=== PATIENT | male | born 1965 | race Caucasian/White ===

== ENCOUNTER → 2016-08-05 | Outpatient (CLI) | payer BC ==
[~2016-08-05] MED LIST: FLUO0.05 TD; GADAVIST IV PRN; GLGKIT; HYDR-4079 PO; INSDGIPEN SC; KETO2CRE14 TD; OMEP20CA9 PO; [UNRECOGNIZED DRUG - OTHER] SC
--- NOTE | 2016-08-05 15:45 | DIAGNOSTIC IMAGING REPORT ---
CERVICAL SPINE MRI WITH AND WITHOUT CONTRAST HISTORY: Neck pain. Arm numbness. TECHNIQUE: Multiplanar multisequence MRI of the cervical spine was performed both before and after the use of intravenous contrast. COMPARISON STUDY: None. FINDINGS: Straightening of the cervical spine. Alignment is intact. The visualized posterior fossa is unremarkable. Cervical spinal cord demonstrates a normal signal intensity. Mild disc space narrowing seen from C3 through C7 with associated disc desiccation. Prevertebral soft tissues and the C1-C2 interval are intact. No abnormal enhancement. C2-C3: No significant central canal or neural foraminal narrowing. C3-C4: No central canal narrowing. Moderate left neural foraminal narrowing. C4-C5: There is a 6 x 3 mm focal central disc protrusion which abuts and slightly deforms the anterior cord. There is moderate right-sided neural foraminal narrowing. C5-C6: Broad-based posterior disc bulge which abuts but does not deform the anterior cord. There is severe bilateral neural foraminal narrowing due to the disc bulge and uncovertebral hypertrophy. C6-C7: Small broad-based posterior disc bulge which abuts but does not significantly deform the anterior cord. Mild bilateral neural foraminal narrowing. C7-T1: No significant central canal or neural foraminal narrowing. IMPRESSION: 1. A 6 x 3 mm focal central disc protrusion at C4-C5 which abuts and slightly deforms the anterior cord. There is also moderate right-sided neural foraminal narrowing. 2. Broad-based posterior disc bulges at C5-C6 and C6-C7 which abut but do not deform the anterior cord. There is also severe bilateral neural foraminal narrowing at C5-C6. 3. Straightening of the cervical spine. Electronically signed by: Иван Elizabeth M.D. 08/05/2016 3:44 PM Dictated Date/Time: 08/05/2016 3:34 PM
== END | disposition home or self-care (01) ==
LOC: C.MRI 13:58
PROVIDERS: ATTEND Family Medicine
DX: M50.121 Cervical disc disorder at C4-C5 level with radiculopathy (principal); M50.122 Cervical disc disorder at C5-C6 level with radiculopathy; M50.123 Cervical disc disorder at C6-C7 level with radiculopathy

== ENCOUNTER → 2016-12-21 | Outpatient (CLI) | payer BC ==
[~2016-12-21] MED LIST changes: -GADAVIST IV PRN
[2016-12-21 09:35] LABS: BASO % 0.6 %; BASO ABS # 0.04 K/uL (0-0.2); COMPLETE YES; EOS % 3.9 %; HEMATOCRIT 41.5 % (42-52); IG% 0.2 %; LYMPH % 46.1 %; LYMPH ABS # 2.94 K/uL (1.2-3.4); MEAN CORPUSCULAR HEMOGLOBIN 28.2 pg (25-34); MEAN PLATELET VOLUME 9.4 fL (7.4-10.4); MONO % 7.4 %; NEUT % 41.8 %; PLATELET COUNT 303 K/uL (130-400); WHITE BLOOD COUNT 6.38 K/uL (4.8-10.8)
[2016-12-21 09:55] LABS: ESTIMATED AVERAGE GLUCOSE 137 mg/dl; HA1C FLAG Normal (Normal)
[2016-12-21 10:01] LABS: ALB/GLOB RATIO 1.2 (0.9-2); ALKALINE PHOSPHATASE 56 U/L (45-117); ALT/SGPT 14 U/L (12-78); AST/SGOT 11 U/L (15-37); BLOOD UREA NITROGEN 11 mg/dl (7-18); BUN/CREATININE RATIO 12.6 (10-20); CALCIUM 8.8 mg/dl (8.5-10.1); CARBON DIOXIDE 28 mmol/L (21-32); CHLORIDE 110 mmol/L (98-107); CREATININE 0.86 mg/dl (0.60-1.40); GLUCOSE 78 mg/dl (70-99); HDL CHOLESTEROL 42 mg/dl; SODIUM 142 mmol/L (136-145)
[2016-12-21 10:12] LABS: CHOLESTEROL 175 mg/dl (0-200); CHOLESTEROL/HDL RATIO 4.2; LDL CHOLESTEROL CALCULATED 111 mg/dl; TRIGLYCERIDES 111 mg/dl (0-150); VERY LOW DENSITY LIPOPROT CALC 22 mg/dl
== END | disposition home or self-care (01) ==
LOC: C.LAB1850 08:28
PROVIDERS: ATTEND Nurse Practitioner Adult Health
DX: Z00.00 Encounter for general adult medical examination without abnormal findings (principal); E78.00 Pure hypercholesterolemia, unspecified; E10.43 Type 1 diabetes mellitus with diabetic autonomic (poly)neuropathy; E10.65 Type 1 diabetes mellitus with hyperglycemia; R20.0 Anesthesia of skin; E10.42 Type 1 diabetes mellitus with diabetic polyneuropathy

== ENCOUNTER → 2017-05-02 | Outpatient (CLI) | payer BC ==
[2017-05-02 09:40] LABS: BASO % 0.3 %; BASO ABS # 0.03 K/uL (0-0.2); COMPLETE YES; HEMATOCRIT 42.5 % (42-52); IG% 0.1 %; LYMPH % 35.1 %; LYMPH ABS # 3.02 K/uL (1.2-3.4); MEAN CELL VOLUME 84.7 fL (80-100); MEAN CORPUSCULAR HEMOGLOBIN 29.1 pg (25-34); MEAN CORPUSCULAR HGB CONC 34.4 g/dl (32-36); MEAN PLATELET VOLUME 10.1 fL (7.4-10.4); MONO % 6.4 %; NEUT % 55.1 %; PLATELET COUNT 279 K/uL (130-400); RED BLOOD COUNT 5.02 M/uL (4.7-6.1)
[2017-05-02 10:01] LABS: CREATININE RANDOM URINE 63.1 mg/dl
[2017-05-02 10:06] LABS: AST/SGOT 4 U/L (15-37); BLOOD UREA NITROGEN 10 mg/dl (7-18); BUN/CREATININE RATIO 12.6 (10-20); CALCIUM 8.9 mg/dl (8.5-10.1); CARBON DIOXIDE 31 mmol/L (21-32); CHLORIDE 105 mmol/L (98-107); CREATININE 0.79 mg/dl (0.60-1.40); GLUCOSE 113 mg/dl (70-99); SODIUM 141 mmol/L (136-145)
[2017-05-02 10:09] LABS: ALB/GLOB RATIO 1.2 (0.9-2); ALKALINE PHOSPHATASE 64 U/L (45-117); ALT/SGPT 11 U/L (12-78); CHOLESTEROL 201 mg/dl (0-200); CHOLESTEROL/HDL RATIO 4.3; HDL CHOLESTEROL 47 mg/dl; LDL CHOLESTEROL CALCULATED 133 mg/dl; TRIGLYCERIDES 103 mg/dl (0-150); VERY LOW DENSITY LIPOPROT CALC 21 mg/dl
[2017-05-02 10:26] LABS: ESTIMATED AVERAGE GLUCOSE 169 mg/dl; HA1C FLAG Normal (Normal)
== END | disposition home or self-care (01) ==
LOC: C.LAB1850 08:08
PROVIDERS: ATTEND Nurse Practitioner Family
DX: E11.42 Type 2 diabetes mellitus with diabetic polyneuropathy (principal); E11.49 Type 2 diabetes mellitus with other diabetic neurological complication; E11.3299 Type 2 diabetes mellitus with mild nonproliferative diabetic retinopathy without macular edema, unspecified eye; E11.43 Type 2 diabetes mellitus with diabetic autonomic (poly)neuropathy; E78.00 Pure hypercholesterolemia, unspecified

== ENCOUNTER 2019-07-13 19:50 | Inpatient (IN) ==
[2019-07-13] MEDS ORDERED: FAMOTIDINE 20MG IV PUSH 20 MG/5 ML SYR IV STA (20:18)
[2019-07-13] MEDS ORDERED: MoRPHine SULFATE 4 MG/ML 1 ML CARP\\VIAL IV STA ×2 (20:18→22:07)
[2019-07-13] MEDS ORDERED: METOCLOPRAMIDE HCL INJ 5 MG/ML 2 ML VIAL IV STA (20:18)
[2019-07-13] MEDS ORDERED: SODIUM CHLORIDE 0.9% 1000ML 1,000 ML IV SCH (20:30)
[2019-07-13 20:49] LABS: Basophils # (auto) 0.01 K/uL (0-0.2); Basophils % (auto) 0.1 %; Hematocrit (blood only) 39.4 % (42-52); Hemoglobin 13.8 g/dL (14.0-18.0); Immature Granulocytes # (auto) 0.02 K/uL (0.00-0.02); Immature Granulocytes % (auto) 0.2 %; Lymphocytes # (auto) 1.18 K/uL (1.2-3.4); Lymphocytes % (auto) 10.5 %; Mean Corpuscular Hemoglobin 29.6 pg (25-34); Mean Corpuscular Volume 84.4 fL (80-100); Monocytes # (auto) 0.41 K/uL (0.11-0.59); Monocytes % (auto) 3.6 %; Neutrophils # (auto) 9.64 K/uL (1.4-6.5); Neutrophils % (auto) 85.6 %; Platelet Count 256 K/uL (130-400); RDW Coefficient of Variation 13.2 % (11.5-14.5); RDW Standard Deviation 39.5 fL (36.4-46.3); Red Blood Count 4.67 M/uL (4.7-6.1); White Blood Count 11.26 K/uL (4.8-10.8)
[2019-07-13 20:58] LABS: Prothrombin Time 10.4 Seconds (9.0-12.0)
[2019-07-13 21:05] LABS: BUN Creatinine Ratio 15.6 (10-20); Calcium 9.9 mg/dl (8.5-10.1); Creatinine Clr Calc Pharmacy 102.9 ml/min; Est GFR (African American) 98.7; Est GFR (Non-African American) 85.1; Potassium 4.2 mmol/L (3.5-5.1)
[2019-07-13 21:10] LABS: Albumin Globulin Ratio 1.1 (0.9-2); Bilirubin,Total 1.6 mg/dl (0.2-1); Globulin 3.5 gm/dl (2.5-4.0); Total Protein 7.5 gm/dl (6.4-8.2); Troponin I 0.016 ng/ml (0-0.045)
[2019-07-13] MEDS ORDERED: IOVERSOL 100ml IV PRN (21:31)
--- NOTE | 2019-07-13 21:53 | CT Scan Report ---
CT SCAN OF THE ABDOMEN AND PELVIS WITH IV CONTRAST CLINICAL HISTORY: Epigastric abdominal pain. Nausea and vomiting. COMPARISON STUDY: Abdominal CT dated 10/20/2010. TECHNIQUE: Following the IV administration of 93 cc of Optiray 320, CT scan of the abdomen and pelvi s is performed from the lung bases to the proximal femora. Images are reviewed in the axial, sagittal , and coronal planes. IV contrast was administered without complication. A dose lowering technique wa s utilized adhering to the principles of ALARA. CT DOSE: 925.72 mGy.cm FINDINGS: Lung bases: The heart is normal in size and without pericardial effusion. The lung bases are clear no ting bibasilar atelectasis. There is a small hiatal hernia. Liver: The contrast-enhanced liver is normal in size, contour, and attenuation. There is no intrahepa tic biliary ductal dilatation. The hepatic veins and portal veins are patent. Gallbladder: Unremarkable. Spleen: Normal in size and attenuation. Pancreas: Atrophic and grossly unremarkable. Adrenal glands: Unremarkable. Kidneys: The contrast enhanced kidneys are normal in size and without hydronephrosis. The kidneys enh ance symmetrically. Abdominal vasculature: The abdominal aorta is normal in course and caliber. Bowel: There is no bowel obstruction. Submucosal fat deposition is noted throughout the colon. This i s a nonspecific finding but suggests chronic inflammation. The appendix is well-visualized and kirk l. Peritoneum: There is no intraperitoneal free air or abdominal ascites. There is a large fat-containin g umbilical hernia. Lymphadenopathy: None. Pelvic viscera: There is mild median lobe hypertrophy of the prostate gland. The bladder and seminal vesicles are normal as visualized. Skeletal structures: No lytic or blastic lesions are seen. IMPRESSION: No acute infectious or inflammatory findings are identified in the abdomen or pelvis. ACT 112: Negative or not required by law. Electronically signed by: Hao Zacarias M.D. 07/13/2019 9:52 PM
[2019-07-13] MEDS ORDERED: ONDANSETRON INJ 2 MG/ML 2 ML VIAL IV STA (22:07)
[2019-07-13] MEDS ORDERED: CAPSAICIN CR 0.075% 60 GM TUBE EXT ONE (22:30)
--- NOTE | 2019-07-13 22:53 | Emergency Department Note ---
Entered by Clary Prieto acting as a scribe for History of Present Illness General Chief complaint: Abdominal Pain Stated complaint: ABD PAIN Time Seen by Provider: 07/13/19 20:09 Source: patient Mode of arrival: ambulatory Limitations: no limitations History of Present Illness Provider complaint: Abdominal pain Onset (ago): day(s) 2 Location: abdomen Radiation: back Severity: similar to prior episodes Pain Consistency: + other (worsening) Maximum Pain Intensity: 8 Quality: + other (pain) Associated symptoms: + nausea/vomiting and + other (Additional symptoms: diarrhea, constipation (now resolved). Denies: leg pain, trouble breathing); no chest pain and no fever/chills Treatments prior to arrival: none The patient is a 53 year old male with a history of gastroparesis, type 2 diabetes, [place] syndrome, and hypercholesterolemia who presents to the Emergency Room with complaints of worsening abdominal pain starting 2 days ago. The patient reports that his pain started after eating dinner 2 days ago. He recalls that he felt nauseous but did not vomit before his pain gradually subsided. However, he notes that when he ate dinner last night, his pain came on immediately and has not resolved. He explains that he had difficulty sleeping secondary to his pain and that his pain has started to migrate into the small of his back. The patient indicates that his pain has been accompanied by nausea, vomiting, and some diarrhea. He also states that he has been unable to eat and drink today. He adds that he was constipated for a few days this week and expresses concern that it may be related to his current symptoms. He otherwise denies any leg pain, fevers, trouble breathing, and chest pain. He reports no recent trauma. The patient mentions that he experienced similar abdominal pain before he was diagnosed with diabetes 9 years ago. He notes that he normally takes terminal worker and short-acting insulin and that he does not monitor his blood sugar at home. Home Medications Home Medications Medication Instructions Recorded Confirmed Type blood sugar diagnostic #10 ea 01/23/19 02/14/19 History pen needle, diabetic 31 gauge x #30 ea 01/23/19 02/14/19 History 3/16" insulin lispro 100 unit/mL 30 units SQ TID #30 ml 02/15/19 07/13/19 Rx subcutaneous pen insulin degludec 100 unit/mL (3 30 units SQ BID #30 ml 07/05/19 07/13/19 Rx mL) subcutaneous pen acetaminophen [Tylenol Extra 100 mg PO Q6H PRN 07/13/19 07/13/19 History Strength] fluocinonide 1 appln TOP BID PRN 07/13/19 07/13/19 History Allergies Allergy/AdvReac Type Severity Reaction Status Date / Time Penicillins Allergy Severe N/V Verified 07/13/19 20:44 aspirin Allergy Intermediate HIVES AND Verified 07/13/19 20:44 SWELLING OF THE FACE ibuprofen Allergy Intermediate HIVES AND Verified 07/13/19 20:44 SWELLING OF THE FACE Past Med/Surg History Medical History Gastroparesis Gilbert's syndrome (Acute) Pure hypercholesterolemia (Acute) Type 2 diabetes mellitus Family History Mother Hypertension Diabetes Myocardial infarction Father Hypertension Diabetes Myocardial infarction Grandfather Myocardial infarction Uncle Myocardial infarction Denies family history of Ovarian cancer Prostate cancer Breast cancer Colorectal cancer Social History Preferred Language: [place] Visual Impairment: No Limitations Hearing Ability: Normal marital status: Current Living Situation: Spouse current occupational status: employed current occupation: meterologist Feels Safe at Home: Yes Smoking Status: Never smoker Hx Alcohol Use: Yes Alcohol Intake Frequency: Weekly Hx Substance Use: Yes substance use type: marijuana Childhood Exposure to Second-Hand Smoke: Yes Dental Care, Regularly: Yes Physical Activity Frequency: Does not Exercise Seatbelt Use: always Sunscreen Use: Yes Review of Systems See HPI for pertinent positives & negatives. and A total of 10 systems reviewed and were otherwise negative Physical Exam Vital Signs Vital Signs - 24 hr 07/13/19 19:54 07/13/19 21:30 07/13/19 21:47 Temperature 37.1 C Temperature Source Oral Pulse Rate 70 72 Pulse Rate from SpO2 Sensor 72 Pulse Rhythm Regular Pulse Strength Normal Respiratory Rate 20 14 Respiratory Effort / Characteristics Non-Labored Respiratory Depth Normal Respiratory Pattern Regular Blood Pressure 187/88 H 172/87 H Blood Pressure Mean 121 142 Blood Pressure Position Sitting Pulse Oximetry 99 95 95 Oxygen Delivery Method Room Air Room Air Sepsis Recent Fever Within 48 Hours No Sepsis Action Taken by Nursing No Action Required 07/13/19 22:23 Temperature Temperature Source Pulse Rate 72 Pulse Rate from SpO2 Sensor Pulse Rhythm Pulse Strength Respiratory Rate 24 Respiratory Effort / Characteristics Respiratory Depth Respiratory Pattern Blood Pressure 153/61 H Blood Pressure Mean 91 Blood Pressure Position Pulse Oximetry 96 Oxygen Delivery Method Room Air Sepsis Recent Fever Within 48 Hours Sepsis Action Taken by Nursing GENERAL: Awake, alert, uncomfortable-appearing thrashing on bed HENT: Normocephalic, atraumatic. Oropharynx unremarkable. Dry mucous membranes. EYES: Normal conjunctiva. Sclera non-icteric. NECK: Supple. No nuchal rigidity. RESPIRATORY: Clear to auscultation. No wheezes. Normal respiratory effort. CARDIAC: Normal rate. Normal rhythm. Extremities warm and well perfused. GI: Soft, non-distended. Mild epigastric tenderness to palpation. No rebound or guarding. No masses. RECTAL: Deferred. MUSCULOSKELETAL: Atraumatic. Chest examination reveals no tenderness. There is no CVA tenderness to palpation. LOWER EXTREMITIES: Calves are equal size bilaterally and non-tender. No edema NEURO: Normal sensorium. No sensory or motor deficits noted. No facial droop. SKIN: Warm and dry. No rash or jaundice noted. Course Course 2014: The patient was evaluated in room B8, and a complete history and physical examination were performed. 2238: I reviewed the patient's case with Dr. Kena France. Dr. Escudero w ill evaluate the patient for further management. Consultations Consultation #1: I reviewed the patient's case with Dr. Kena France. Dr. Escudero will evaluate the patient for further management. Time: 22:38 Administered Medications Ioversol (Optiray 320 100ml) 93 ml IV ONCE PRN PRN Reason: Interaction Checking Stop: 07/17/19 21:30 Last Admin: 07/13/19 21:32 Dose: 93 ml Documented by: [id number] Discontinued Medications Capsaicin (Zostrix) 1 appln EXT ONE ONE Stop: 07/13/19 22:31 Last Admin: 07/13/19 22:39 Dose: 1 appln Documented by: [id number] Sodium Chloride (Nss 1000ml) 1,000 mls @ 999 mls/hr IV .Q1H1M PATRICIA Stop: 07/13/19 21:30 Last Infusion: 07/13/19 22:02 Dose: 0 mls/hr Documented by: [id number] Admin: 07/13/19 20:50 Dose: 999 mls/hr Documented by: [id number] Famotidine (Pepcid 20mg Iv Push) 20 mg in 5 mls @ 2.5 mls/min IV NOW STA Stop: 07/13/19 20:19 Last Admin: 07/13/19 20:49 Dose: 2.5 mls/min Documented by: [id number] Metoclopramide HCl (Reglan) 10 mg IV NOW STA Stop: 07/13/19 20:19 Last Admin: 07/13/19 20:49 Dose: 10 mg Documented by: [id number] Morphine Sulfate (Morphine Sulfate) 4 mg IV NOW STA Stop: 07/13/19 20:19 Last Admin: 07/13/19 20:49 Dose: 4 mg Documented by: [id number] Morphine Sulfate (Morphine Sulfate) 4 mg IV NOW STA Stop: 07/13/19 22:08 Last Admin: 07/13/19 22:15 Dose: 4 mg Documented by: [id number] Ondansetron HCl (Zofran) 4 mg IV NOW STA Stop: 07/13/19 22:08 Last Admin: 07/13/19 22:15 Dose: 4 mg Documented by: [id number] Medical Decision Making Differential Diagnosis Differential diagnosis includes: appendicitis, diverticulitis, PUD, biliary pathology, UTI, pancreatitis, obstruction, mesenteric ischemia, aortic pathology, infections, inflammatory bowel disease, renal colic, as well as other s were entertained. Medical Records Attestation: I reviewed the patient's medical records. Home Medications Current Medication List: was personally reviewed by me Laboratory Data Attestation: I reviewed the patient's lab results. Result diagrams: 07/13/19 20:35 07/13/19 20:35 Lab Results 07/13/19 07/13/19 07/13/19 Range/Units 19:58 20:35 20:35 WBC 11.26 H (4.8-10.8) K/uL RBC 4.67 L (4.7-6.1) M/uL Hgb 13.8 L (14.0-18.0) g/dL Hct 39.4 L (42-52) % MCV 84.4 (80-100) fL MCH 29.6 (25-34) pg MCHC 35.0 (32-36) g/dL RDW Std Deviation 39.5 (36.4-46.3) fL RDW Coeff of Fabrice 13.2 (11.5-14.5) % Plt Count 256 (130-400) K/uL MPV 10.0 (7.4-10.4) fL Immature Gran % (Auto) 0.2 % Neut % (Auto) 85.6 % Lymph % (Auto) 10.5 % Garfield % (Auto) 3.6 % Eos % (Auto) 0.0 % Baso % (Auto) 0.1 % Immature Gran # (Auto) 0.02 (0.00-0.02) K/uL Neut # (Auto) 9.64 H (1.4-6.5) K/uL Lymph # (Auto) 1.18 L (1.2-3.4) K/uL Garfield # (Auto) 0.41 (0.11-0.59) K/uL Eos # (Auto) 0.00 (0-0.5) K/uL Baso # (Auto) 0.01 (0-0.2) K/uL PT 10.4 (9.0-12.0) Seconds INR 1.0 (0.9-1.1) Sodium (136-145) mmol/L Potassium (3.5-5.1) mmol/L Chloride (98-107) mmol/L Carbon Dioxide (21-32) mmol/L Anion Gap (3-11) BUN (7-18) mg/dl Creatinine (0.6-1.4) mg/dl Est Cr Clr Drug Dosing ml/min Est GFR ( Amer) Est GFR (Non-Af Amer) BUN/Creatinine Ratio (10-20) Glucose (70-99) mg/dl POC Glucose 234 H (70-99) mg/dl Lactate (0.4-2.0) mmol/L Calcium (8.5-10.1) mg/dl Total Bilirubin (0.2-1) mg/dl AST (15-37) U/L ALT (12-78) U/L Alkaline Phosphatase (45-117) U/L Troponin I (0-0.045) ng/ml Total Protein (6.4-8.2) gm/dl Albumin (3.4-5.0) gm/dl Globulin (2.5-4.0) gm/dl Albumin/Globulin Ratio (0.9-2) Lipase (73-393) U/L 07/13/19 07/13/19 Range/Units 20:35 20:35 WBC (4.8-10.8) K/uL RBC (4.7-6.1) M/uL Hgb (14.0-18.0) g/dL Hct (42-52) % MCV (80-100) fL MCH (25-34) pg MCHC (32-36) g/dL RDW Std Deviation (36.4-46.3) fL RDW Coeff of Fabrice (11.5-14.5) % Plt Count (130-400) K/uL MPV (7.4-10.4) fL Immature Gran % (Auto) % Neut % (Auto) % Lymph % (Auto) % Garfield % (Auto) % Eos % (Auto) % Baso % (Auto) % Immature Gran # (Auto) (0.00-0.02) K/uL Neut # (Auto) (1.4-6.5) K/uL Lymph # (Auto) (1.2-3.4) K/uL Garfield # (Auto) (0.11-0.59) K/uL Eos # (Auto) (0-0.5) K/uL Baso # (Auto) (0-0.2) K/uL PT (9.0-12.0) Seconds INR (0.9-1.1) Sodium 137 (136-145) mmol/L Potassium 4.2 (3.5-5.1) mmol/L Chloride 103 (98-107) mmol/L Carbon Dioxide 24 (21-32) mmol/L Anion Gap 10.0 (3-11) BUN 16 (7-18) mg/dl Creatinine 1.01 (0.6-1.4) mg/dl Est Cr Clr Drug Dosing 102.9 ml/min Est GFR ( Amer) 98.7 Est GFR (Non-Af Amer) 85.1 BUN/Creatinine Ratio 15.6 (10-20) Glucose 229 H (70-99) mg/dl POC Glucose (70-99) mg/dl Lactate 2.5 H* (0.4-2.0) mmol/L Calcium 9.9 (8.5-10.1) mg/dl Total Bilirubin 1.6 H (0.2-1) mg/dl AST 13 L (15-37) U/L ALT 12 (12-78) U/L Alkaline Phosphatase 66 (45-117) U/L Troponin I 0.016 (0-0.045) ng/ml Total Protein 7.5 (6.4-8.2) gm/dl Albumin 4.0 (3.4-5.0) gm/dl Globulin 3.5 (2.5-4.0) gm/dl Albumin/Globulin Ratio 1.1 (0.9-2) Lipase 62 L (73-393) U/L Imaging Data Radiologist's Impression: Radiology results as stated below per my review and the radiologist's interpretation: CT SCAN OF THE ABDOMEN AND PELVIS WITH IV CONTRAST CLINICAL HISTORY: Epigastric abdominal pain. Nausea and vomiting. COMPARISON STUDY: Abdominal CT dated 10/20/2010. TECHNIQUE: Following the IV administration of 93 cc of Optiray 320, CT scan of the abdomen and pelvis is performed from the lung bases to the proximal femora. Images are reviewed in the axial, sagittal, and coronal planes. IV contrast was administered without complication. A dose lowering technique was utilized adhering to the principles of ALARA. CT DOSE: 925.72 mGy.cm FINDINGS: Lung bases: The heart is normal in size and without pericardial effusion. The lung bases are clear noting bibasilar atelectasis. There is a small hiatal hernia. Liver: The contrast-enhanced liver is normal in size, contour, and attenuation. There is no intrahepatic biliary ductal dilatation. The hepatic veins and portal veins are patent. Gallbladder: Unremarkable. Spleen: Normal in size and attenuation. Pancreas: Atrophic and grossly unremarkable. Adrenal glands: Unremarkable. Kidneys: The contrast enhanced kidneys are normal in size and without hydronephrosis. The kidneys enhance symmetrically. Abdominal vasculature: The abdominal aorta is normal in course and caliber. Bowel: There is no bowel obstruction. Submucosal fat deposition is noted throughout the colon. This is a nonspecific finding but suggests chronic inflammation. The appendix is well-visualized and normal. Peritoneum: There is no intraperitoneal free air or abdominal ascites. There is a large fat-containing umbilical hernia. Lymphadenopathy: None. Pelvic viscera: There is mild median lobe hypertrophy of the prostate gland. The bladder and seminal vesicles are normal as visualized. Skeletal structures: No lytic or blastic lesions are seen. IMPRESSION: No acute infectious or inflammatory findings are identified in the abdomen or pelvis. ACT 112: Negative or not required by law. Electronically signed by: Hao Zacarias M.D. 07/13/2019 9:52 PM ECG Data Attestation: I personally reviewed and interpreted this ECG as follows: Indication: + abdominal pain Rate (beats per minute): 73 Rhythm: + normal sinus ECG Intervals/blocks: + Normal QRS, + Normal QT and + Normal ND ECG [place]: + Normal ECG ST segments: no ST depression and no ST elevation ECG Findings: no PVCs Blood Pressure Blood Pressure Findings: Elevated blood pressure Blood Pressure Disposition: further management by hospitalist MACY Narrative Patient is a 53-year-old gentleman with a history gastroparesis with a history of diabetes type II not currently check his blood sugar at home presenting today with a complaint of abdominal pain and back pain with vomiting. Patient fairly severe intractable pain. Started last night but fairly significant throughout the day today. No trauma. No fevers reported. Maybe a little bit of diarrhea but significant vomiting. Given IV fluids, Reglan, and pain medication here. CT scan was complete as well as basic labs, EKG, troponin. Concerned this could possibly represent gastroparesis type pain versus gastroenteritis versus pancreatitis. Lower suspicion for cholecystitis or appendicitis or diverticu litis based on location. Patient with a very slight leukocytosis mild anemia. Lactate mildly elevated bilirubin slightly elevated. Troponin detectable but not abnormal. Creatinine other electrolytes within normal limits without anion gap. Glucose mildly elevated. Lipase not significantly elevated. No evidence of inflammatory changes or acute infectious changes on the imaging. Appendix appears normal. Luckily it does not appear the patient is suffering from pancreatitis. Reevaluation he is having improvement of his pain and nausea. Did trial an oral trial with some water and promptly had recurrence of pain and nausea. Given some Zofran and additional morphine. Discussed with the patient states that he does smoke some marijuana and has improved with showers. Small amount of capsaicin will be trialed. Given his fracture nature however do believe that further observation overnight would be prudent. Patient is in agreement. Discussed with the hospitalist. Impression & Plan Intractable nausea and vomiting, Epigastric abdominal pain Discharge Plan Visit Data Chief Complaint: Abdominal Pain Stated Complaint: ABD PAIN ED Provider: Victoriano Hall Discharge Problem: Intractable nausea and vomiting, Epigastric abdominal pain Patient Disposition: Admitted As Inpatient Forms Stand Alone Forms: My [facility] Prescriptions Prescriptions: No Action insulin lispro [Humalog KwikPen Insulin] 100 unit/mL insulin pen 30 units SQ TID Qty: 30 RF: 3 Tresiba FlexTouch U-100 100 unit/mL (3 mL) insulin pen 30 units SQ BID Qty: 30 RF: 5 (DME) pen needle, diabetic [BD Ultra-Fine Mini Pen Needle] 31 gauge x 3/16" needle See Dose Instructions .ROUTE .MEDSUPPLY Qty: 30 RF: 0 (DME) OneTouch Ultra Blue Test Strip strip See Dose Instructions .ROUTE .MEDSUPPLY Qty: 10 RF: 0 acetaminophen [Tylenol Extra Strength] 500 mg Tablet 100 mg PO Q6H PRN (Reason: Pain) RF: 0 fluocinonide 0.05 % cream 1 appln TOP BID PRN (Reason: FLARE UPS) RF: 0 Referrals Referrals: Gray Wisdom III, CRNP [Primary Care Provider] - The scribe's documentation has been prepared under my direction and personally reviewed by me in its entirety. I confirm that the note above accurately reflects all work, treatment, procedures, and medical decision making performed by me.
[2019-07-13 22:55] LABS: Magnesium 1.7 mg/dl (1.8-2.4)
--- NOTE | 2019-07-13 23:19 | History & Physical Report ---
Date of Service July 13, 2019 Assessment & Plan (1) Intractable nausea and vomiting: Obs GMF PRN Zofran ED gave capsaicin in event this is related to marijuana use LR @125 Clear liquid diet. DVT prophylaxis = SCDs and sub-q Lovenox. (2) Epigastric abdominal pain: Pain control. (3) Gastroparesis: Currently not taking any chronic meds for this. (4) Type 2 diabetes mellitus: Continue Xultophy 30 U BID starting in the am Sliding scale insulin coverage. (5) Hypomagnesemia: Replaced Will check level in am. History of Present Illness 53 y/o male presented to the ED with a progressive diffuse abdominal pain that began 2 days prior following evening meal. He has had associated nausea, vomiting and diarrhea. Pain radiates through to his low back. No F/C, cough, SOB, chest pain, dysuria, hematuria, or headache. The patient has not vomited since being in the ED. Primary Care Provider: Gray Wisdom, VIKI, CARMEN Allergies Allergy/AdvReac Type Severity Reaction Status Date / Time Penicillins Allergy Severe N/V Verified 07/13/19 20:44 aspirin Allergy Intermediate HIVES AND Verified 07/13/19 20:44 SWELLING OF THE FACE ibuprofen Allergy Intermediate HIVES AND Verified 07/13/19 20:44 SWELLING OF THE FACE Home Medications Home Medications Medication Instructions Recorded Confirmed Type blood sugar diagnostic #10 ea 01/23/19 02/14/19 History pen needle, diabetic 31 gauge x #30 ea 01/23/19 02/14/19 History 3/16" insulin lispro 100 unit/mL 30 units SQ TID #30 ml 02/15/19 07/13/19 Rx subcutaneous pen insulin degludec 100 unit/mL (3 30 units SQ BID #30 ml 07/05/19 07/13/19 Rx mL) subcutaneous pen acetaminophen [Tylenol Extra 100 mg PO Q6H PRN 07/13/19 07/13/19 History Strength] fluocinonide 1 appln TOP BID PRN 07/13/19 07/13/19 History Past Med/Surg History Medical History Gastroparesis Gilbert's syndrome (Acute) Pure hypercholesterolemia (Acute) Type 2 diabetes mellitus Family History Mother Hypertension Diabetes Myocardial infarction Father Hypertension Diabetes Myocardial infarction Grandfather Myocardial infarction Uncle Myocardial infarction Denies family history of Ovarian cancer Prostate cancer Breast cancer Colorectal cancer Social History Preferred Language: Indonesian Visual Impairment: No Limitations Hearing Ability: Normal marital status: Current Living Situation: Spouse current occupational status: employed current occupation: meterologist Feels Safe at Home: Yes Smoking Status: Never smoker Hx Alcohol Use: Yes Alcohol Intake Frequency: Weekly Hx Substance Use: Yes substance use type: marijuana Childhood Exposure to Second-Hand Smoke: Yes Dental Care, Regularly: Yes Physical Activity Frequency: Does not Exercise Seatbelt Use: always Sunscreen Use: Yes Review of Systems Review of Systems: All systems reviewed & are unremarkable except as noted in HPI & below Physical Exam Physical Exam: General- adult male, NAD Head- atraumatic Eyes- PERRL, EOMI, anicteric ENT- oropharynx clear Neck- supple, no JVD, no adenopathy, no thyromegaly. Lungs- CTA b/l No R/R/W. Heart- regular rhythm; no murmur, no gallop, no rub appreciated Abdomen- normal bowel sounds, soft, nontender. Extremities- no pretibial edema, no calf tenderness; peripheral pulses intact Neuro- alert, oriented x 3; PERRL, EOMI; or first assist registered nurse II-XII grossly intact, non-focal. Skin- warm & dry Results & Data Vital Signs (Past 12 Hours) Vital Signs Temp Pulse Resp BP Pulse Ox 07/13/19 22:23 72 24 153/61 H 96 07/13/19 21:47 72 14 172/87 H 95 07/13/19 21:30 95 07/13/19 19:54 37.1 C 70 20 187/88 H 99 Laboratory Results Laboratory Results WBC 11.26 K/uL (4.8-10.8) H 07/13/19 20:35 RBC 4.67 M/uL (4.7-6.1) L 07/13/19 20:35 Hgb 13.8 g/dL (14.0-18.0) L 07/13/19 20:35 Hct 39.4 % (42-52) L 07/13/19 20:35 MCV 84.4 fL (80-100) 07/13/19 20: MCH 29.6 pg (25-34) 07/13/19: MCHC 35.0 g/dL (32-36) 07/13/19 RDW Std Deviation 39.5 fL (36.4-46.3) 07/13/19 20 RDW Coeff of Fabrice 13.2 % (11.5-14.5) 07/13/19 Plt Count 256 K/uL (130-400) 07/13/19 20: MPV 10.0 fL (7.4-10.4) 07/13/19 20: Immature Gran % (Auto) 0.2 % 07/13/19 20: Neut % (Auto) 85.6 % 07/13/19 20: Lymph % (Auto) 10.5 % 07/13/19 20: Murray % (Auto) 3.6 % 07/13/19 20: Eos % (Auto) 0.0 % 07/13/19: Baso % (Auto) 0.1 % 07/13/19: Immature Gran # (Auto) 0.02 K/uL (0.00-0.02) 07/13/19 20: Neut # (Auto) 9.64 K/uL (1.4-6.5) H 07/13/19 20:35 Lymph # (Auto) 1.18 K/uL (1.2-3.4) L 07/13/19 20:35 Murray # (Auto) 0.41 K/uL (0.11-0.59) 07/13/19 20:35 Eos # (Auto) 0.00 K/uL (0-0.5) 07/13/19 20:35 Baso # (Auto) 0.01 K/uL (0-0.2) 07/13/19 20: PT 10.4 Seconds (9.0-12.0) 07/13/19 20:35 INR 1.0 (0.9-1.1) 07/13/19 20:35 Sodium 137 mmol/L (136-145) 07/13/19 20:35 Potassium 4.2 mmol/L (3.5-5.1) 02/14/20 20:35 Chloride 103 mmol/L (98-107) 07/13/19 20:35 Carbon Dioxide 24 mmol/L (21-32) 07/13/19 20:35 Anion Gap 10.0 (3-11) 07/13/19 20:35 BUN 16 mg/dl (7-18) 07/13/19 20:35 Creatinine 1.01 mg/dl (0.6-1.4) 07/13/19 20:35 Est Cr Clr Drug Dosing 102.9 ml/min 07/13/19 20:35 Est GFR ( Amer) 98.7 07/13/19 20:35 Est GFR (Non-Af Amer) 85.1 07/13/19 20:35 BUN/Creatinine Ratio 15.6 (10-20) 07/13/19 20:35 Glucose 229 mg/dl (70-99) H 07/13/19 20:35 POC Glucose 234 mg/dl (70-99) H 07/13/19 19:58 Lactate 2.5 mmol/L (0.4-2.0) H* 07/13/19 20:35 Calcium 9.9 mg/dl (8.5-10.1) 07/13/19 20:35 Magnesium 1.7 mg/dl (1.8-2.4) L 07/13/19 20:35 Total Bilirubin 1.6 mg/dl (0.2-1) H 07/13/19 20:35 AST 13 U/L (15-37) L 07/13/19 20:35 ALT 12 U/L (12-78) 07/13/19 20:35 Alkaline Phosphatase 66 U/L (45-117) 07/13/19 20:35 Troponin I 0.016 ng/ml (0-0.045) 07/13/19 20:35 Total Protein 7.5 gm/dl (6.4-8.2) 07/13/19 20:35 Albumin 4.0 gm/dl (3.4-5.0) 07/13/19 20:35 Globulin 3.5 gm/dl (2.5-4.0) 07/13/19 20:35 Albumin/Globulin Ratio 1.1 (0.9-2) 07/13/19 20:35 Lipase 62 U/L (73-393) L 07/13/19 20:35 Diagnostic Findings [place], [place] [phone] CT Scan Report Patient: HUY YEAGER Date: 07/13/19 MR#: [id number]: [id number] Acct ID:[id number]: Date: [address] Zip: [place] [address] Age: 53Location: ED Sex: M Room/Bed: Att Phy:Diagnosis: ABD PAIN Kayla Phy: Gray Wisdom, III, CRNPService Date: 07/13/19 Fam Phy:Interpreting Phy: Hao Zacarias MD Admit Phy: Ordering Phy: Victoriano Hall M.D. cc: ~ CT SCAN OF THE ABDOMEN AND PELVIS WITH IV CONTRAST CLINICAL HISTORY: Epigastric abdominal pain. Nausea and vomiting. COMPARISON STUDY: Abdominal CT dated 10/20/2010. TECHNIQUE: Following the IV administration of 93 cc of Optiray 320, CT scan of the abdomen and pelvis is performed from the lung bases to the proximal femora. Images are reviewed in the axial, sagittal, and coronal planes. IV contrast was administered without complication. A dose lowering technique was utilized adhering to the principles of ALARA. CT DOSE: 925.72 mGy.cm FINDINGS: Lung bases: The heart is normal in size and without pericardial effusion. The lung bases are clear noting bibasilar atelectasis. There is a small hiatal hernia. Liver: The contrast-enhanced liver is normal in size, contour, and attenuation. There is no intrahepatic biliary ductal dilatation. The hepatic veins and portal veins are patent. Gallbladder: Unremarkable. Spleen: Normal in size and attenuation. Pancreas: Atrophic and grossly unremarkable. Adrenal glands: Unremarkable. Kidneys: The contrast enhanced kidneys are normal in size and without hydronephrosis. The kidneys enhance symmetrically. Abdominal vasculature: The abdominal aorta is normal in course and caliber. Bowel: There is no bowel obstruction. Submucosal fat deposition is noted throughout the colon. This is a nonspecific finding but suggests chronic inflammation. The appendix is well-visualized and normal. Peritoneum: There is no intraperitoneal free air or abdominal ascites. There is a large fat-containing umbilical hernia. Lymphadenopathy: None. Pelvic viscera: There is mild median lobe hypertrophy of the prostate gland. The bladder and seminal vesicles are normal as visualized. Skeletal structures: No lytic or blastic lesions are seen. IMPRESSION: No acute infectious or inflammatory findings are identified in the abdomen or pelvis. ACT 112: Negative or not required by law. Electronically signed by: Hao Zacarias M.D. 07/13/2019 9:52 PM Dictated: 07/13/192144 Transcribed: 07/13/192144 Code Status & VTE Plan VTE Prophylaxis Plan VTE Prophylaxis will be ordered: Yes PG Care Time/CCT Total # of Minutes Spent Total Time Spent: 55 Total Time Spent with Patient: Total time spent is greater than 50% in coordination of care (as documented) at patient's floor/unit and/or counseling patient: Coding Level of Care Code 33812 OBS Care - Level 2 Diagnoses Intractable nausea and vomiting R11.2 Epigastric abdominal pain R10.13 Gastroparesis K31.84 Type 2 diabetes mellitus E11.9 Hypomagnesemia E83.42
[2019-07-14 00:05] LABS: Appearance Urine Clear (Clear); Bacteria Urine Automated Negative (Negative); Bilirubin Urine Negative (Negative); Blood Urine 1+ (Negative); Color Urine Orange; Glucose Urine UA 3+ (Negative); Leukocyte Esterase Urine Negative (Negative); Nitrite Urine Negative (Negative); Protein Urine Negative (Negative); Specific Gravity Urine > 1.045 (1.000-1.030); Urobilinogen Urine Negative (Negative); WBC Urine Automated 0 /hpf (0-5)
[2019-07-14 00:12] LABS: Ketones Urine 3+ (Negative)
[2019-07-14] MEDS ORDERED: GLUCAGON FOR INJ 1 MG VIAL SQ PRN (00:56)
[2019-07-14] MEDS ORDERED: DEXTROSE 50% 50 ML SYRINGE IV PRN (00:56)
[2019-07-14] MEDS ORDERED: GLUCOSE 10 TABS/TUBE PO PRN (00:56)
[2019-07-14] MEDS ORDERED: GLUCOSE 40% GEL 15 GM TUBE PO PRN (00:56)
[2019-07-14] MEDS ORDERED: PNEUMOCOCCAL POLYSACCHARIDES 25 MCG/0.5 ML VIAL/SYR IM ONE (01:03)
[2019-07-14] MEDS ORDERED: PNEUMOCOCCAL ADMINISTRATION CHARGE ONE (01:03)
[2019-07-14] MEDS ORDERED: INFLUENZA ADMINISTRATION CHARGE ONE (01:03)
[2019-07-14] MEDS ORDERED: INFLUENZA VIRUS QUAD VACCINE 0.5 ML SYR IM ONE (01:03)
[2019-07-14] MEDS ORDERED: MAGNESIUM SULFATE / D5W 1 GM/100 ML BAG IV ONE (01:15)
[2019-07-14] MEDS: MoRPHine SULFATE 4 MG/ML 1 ML CARP\\VIAL IV PRN ×2 (01:20→06:31)
[2019-07-14] MEDS: FAMOTIDINE 20 MG in SYRINGE 3 ML IV SCH ×3 (01:21→20:18)
[2019-07-14] MEDS: ONDANSETRON INJ 2 MG/ML 2 ML VIAL IV PRN ×3 (01:21→20:18)
[2019-07-14] MEDS: LACTATED RINGER'S 1,000 ML IV SCH ×3 (01:21→17:19)
[2019-07-14 06:08] LABS: Hematocrit (blood only) 36.4 % (42-52); Mean Corpuscular Hgb Conc 35.7 g/dL (32-36); Mean Corpuscular Volume 84.1 fL (80-100); Mean Platelet Volume 9.7 fL (7.4-10.4); Platelet Count 259 K/uL (130-400); RDW Coefficient of Variation 13.2 % (11.5-14.5); RDW Standard Deviation 39.7 fL (36.4-46.3); Red Blood Count 4.33 M/uL (4.7-6.1); White Blood Count 13.28 K/uL (4.8-10.8)
[2019-07-14] MEDS ORDERED: PROCHLORPERAZINE 10 MG in SYRINGE 8 ML IV ONE (06:30)
[2019-07-14 06:40] LABS: Albumin Level 3.4 gm/dl (3.4-5.0); BUN Creatinine Ratio 14.9 (10-20); Bilirubin Direct 0.2 mg/dl (0-0.2); Calcium 8.4 mg/dl (8.5-10.1); Creatinine Clr Calc Pharmacy 113.3 ml/min; Est GFR (African American) 110.4; Est GFR (Non-African American) 95.3; Magnesium 2.1 mg/dl (1.8-2.4); Potassium 3.8 mmol/L (3.5-5.1)
[2019-07-14 06:50] LABS: Albumin Globulin Ratio 1.2 (0.9-2); Bilirubin,Total 1.4 mg/dl (0.2-1); Globulin 2.8 gm/dl (2.5-4.0); Total Protein 6.2 gm/dl (6.4-8.2)
[2019-07-14] MEDS: INSULIN ASPART 100 UNITS/ML 3 ML PEN SC SCH ×4 (09:30→20:22)
[2019-07-14] MEDS: ENOXAPARIN INJ 40 MG/0.4 ML SYR SQ SCH (09:30)
[2019-07-14] MEDS: INSULIN GLARGINE SOLOSTAR 100 UNITS/ML 3 ML PEN SC SCH ×2 (09:31→20:23)
[2019-07-14] MEDS: MoRPHine SULFATE 2 MG/ML CARP IV PRN ×2 (13:30→21:17)
[2019-07-14] MEDS ORDERED: OXYCODONE HCL IR 5 MG TAB (IMMEDIATE RELEASE) PO STA (15:18)
--- NOTE | 2019-07-14 15:57 | XRay Report ---
XR abdomen 2V w PA chest CLINICAL HISTORY: RLQ abd pain; eval for fecal impaction/constipatio COMPARISON STUDY: CT scan dated 07/13/2019 FINDINGS: Direct chest reveals no free intraperitoneal air. There is elevation the right hemidiaphrag m. There is basilar atelectasis. Recommend supine views of the abdomen reveal borderline dilated left mid abdominal small bowel loops. There is gas present within the colon. There are no transition zone s indicate bowel obstruction. There are scattered air-fluid levels. IMPRESSION: 1. Possible mild ileus with scattered air-fluid levels within minimally prominent small bowel loops 2. No conventional radiographic evidence of bowel obstruction or free air. ACT 112: Negative or not required by law. Electronically signed by: Magdiel Forte M.D. 07/14/2019 3:55 PM
--- NOTE | 2019-07-14 17:59 | Hospitalist Progress Note ---
Date of Service July 14, 2019 Assessment & Plan (1) Epigastric abdominal pain: Pain today was in the RLQ. I reviewed all labs since admission as well as CT done last night. CT abd/pelvis was unremarkable (normal gall bladder, normal bowels, etc). Noted - high lactate, high WBC count. I obtained abd x-rays this afternoon - mild scattered air-fluid levels and slight small bowel dilatation. I believe the entire constellation of symptoms/signs/etc is most c/w a gastroenteritis. Uncertain if viral or bacterial. I do not think this represents ischemic colitis - no evidence of such on imaging. Downgrade diet to clears. Cont IVF. Try bentyl prn for cramps. Limit narcotics if possible. Send c.diff and stool cx if possible. Cont H2 Waqas IV. If pain persists in a specific location (RUQ, RLQ, etc) consider additional imaging - RUQ u/s for biliary tract disease, repeat CT to r/o early appy or other process, etc. I updated patient with xray findings. Updated by phone of plan of care. (2) Intractable nausea and vomiting: see discussion above in "abd pain" (3) Gastroparesis: Although he has a dx of this I do not believe his current symptoms are from such. Gastroparesis would not cause RLQ abd pain, a lactic acidosis, etc. Although it could contribute to his nausea the x-ray findings from today and other symptoms are not c/w gastroparesis. (4) Type 2 diabetes mellitus: Continue Xultophy 30 U BID. Novolog for carb coverage and correction. Thus far glycemic control is adequate. (5) Hypomagnesemia: Replaced and now resolved (6) DVT prophylaxis: lovenox daily repeat CBC, CMP in am patient unable to tolerate diet and has ongoing pain - will change OBS status to full admission extensively updated by phone 07/14/19 Admission and Anticipated Discharge Date Admission Date: July 14, 2019 Subjective saw the patient during the afternoon. reported he ate full liquids at breakfast- took half of the tray - no pain with such, kept that down. following lunch he had significant crampy abd pain starting 30 min or so after eating. pointed to RLQ as location of pain. nothing in upper quadrants. feels like he has to have a bowel movement but no BM in 2+ days. prior to that had been having diarrhea. Review of Systems Constitutional: + fatigue and + anorexia; no fever and no chills Respiratory: no dyspnea Cardiovascular: no chest pain Gastrointestinal: + abdominal pain, + nausea and + constant urge to pass stools; no vomiting Physical Exam Constitutional: well developed, well nourished, + acute distress (c/o abd pain ), + well hydrated and average body habitus ENMT: external ear and nose normal, oropharynx normal Respiratory: normal respiratory effort, lungs clear to auscultation Cardiovascular: Rate/Rhythm: regular rate and regular rhythm Heart Sounds: normal S1 and normal S2; no murmur Vessels: posterior tibial pulses present and dorsalis pedis pulses present; no JVD Extremities: no edema Gastrointestinal (Abdomen): Inspection/Auscultation: abdomen normal to inspection and normal bowel sounds; abdomen not distended Percussion/Palpation: + abdomen tender (mild- RLQ) and abdomen soft; no guarding, abdomen not rigid and no hepatosplenomegaly Skin: no rashes, warm and dry Psychiatric: A+Ox3, euthymic affect Results & Data ([facility]) Vital Signs (Past 12 Hours) Vital Signs Temp Pulse Pulse Resp BP Pulse Ox 07/14/19 14:51 37.0 C 64 18 173/97 H 94 07/14/19 14:49 169/89 H 07/14/19 13:27 73 148/76 H 95 07/14/19 07:35 37.4 C 69 16 108/57 L 95 Laboratory Results Laboratory Results - last 24 hr 07/13/19 07/13/19 07/13/19 19:58 20:35 20:35 WBC 11.26 H RBC 4.67 L Hgb 13.8 L Hct 39.4 L MCV 84.4 MCH 29.6 MCHC 35.0 RDW Std Deviation 39.5 RDW Coeff of Fabrice 13.2 Plt Count 256 MPV 10.0 Immature Gran % (Auto) 0.2 Neut % (Auto) 85.6 Lymph % (Auto) 10.5 [place] % (Auto) 3.6 Eos % (Auto) 0.0 Baso % (Auto) 0.1 Immature Gran # (Auto) 0.02 Neut # (Auto) 9.64 H Lymph # (Auto) 1.18 L [place]field # (Auto) 0.41 Eos # (Auto) 0.00 Baso # (Auto) 0.01 PT 10.4 INR 1.0 Sodium Potassium Chloride Carbon Dioxide Anion Gap BUN Creatinine Est Cr Clr Drug Dosing Est GFR ( Amer) Est GFR (Non-Af Amer) BUN/Creatinine Ratio Glucose POC Glucose 234 H Lactate Calcium Magnesium Total Bilirubin Direct Bilirubin AST ALT Alkaline Phosphatase Troponin I Total Protein Albumin Globulin Albumin/Globulin Ratio Lipase Urine Color Urine Appearance Urine pH Ur Specific [place] Urine Protein Urine Glucose (UA) Urine Ketones Urine Blood Urine Nitrite Urine Bilirubin Urine Urobilinogen Ur Leukocyte Esterase Urine WBC (Auto) Urine RBC (Auto) U Hyaline Cast (Auto) U Epithel Cells (Auto) Urine Bacteria (Auto) 07/13/19 07/13/19 07/13/19 20:35 20:35 23:44 WBC RBC Hgb Hct MCV MCH MCHC RDW Std Deviation RDW Coeff of Fabrice Plt Count MPV Immature Gran % (Auto) Neut % (Auto) Lymph % (Auto) [place] % (Auto) Eos % (Auto) Baso % (Auto) Immature Gran # (Auto) Neut # (Auto) Lymph # (Auto) [place] # (Auto) Eos # (Auto) Baso # (Auto) PT INR Sodium 137 Potassium 4.2 Chloride 103 Carbon Dioxide 24 Anion Gap 10.0 BUN 16 Creatinine 1.01 Est Cr Clr Drug Dosing 102.9 Est GFR ( Amer) 98.7 Est GFR (Non-Af Amer) 85.1 BUN/Creatinine Ratio 15.6 Glucose 229 H POC Glucose Lactate 2.5 H* Calcium 9.9 Magnesium 1.7 L Total Bilirubin 1.6 H Direct Bilirubin AST 13 L ALT 12 Alkaline Phosphatase 66 Troponin I 0.016 Total Protein 7.5 Albumin 4.0 Globulin 3.5 Albumin/Globulin Ratio 1.1 Lipase 62 L Urine Color [place] Urine Appearance Clear Urine pH 7.0 Ur Specific [place] > 1.045 H Urine Protein Negative Urine Glucose (UA) 3+ H Urine Ketones 3+ H Urine Blood 1+ H Urine Nitrite Negative Urine Bilirubin Negative Urine Urobilinogen Negative Ur Leukocyte Esterase Negative Urine WBC (Auto) 0 Urine RBC (Auto) 5-10 H U Hyaline Cast (Auto) 1-5 U Epithel Cells (Auto) 5-10 H Urine Bacteria (Auto) Negative 07/14/19 07/14/19 07/14/19 01:00 05:45 05:45 WBC 13.28 H RBC 4.33 L Hgb 13.0 L Hct 36.4 L MCV 84.1 MCH 30.0 MCHC 35.7 RDW Std Deviation 39.7 RDW Coeff of Fabrice 13.2 Plt Count 259 MPV 9.7 Immature Gran % (Auto) Neut % (Auto) Lymph % (Auto) [place] % (Auto) Eos % (Auto) Baso % (Auto) Immature Gran # (Auto) Neut # (Auto) Lymph # (Auto) [place] # (Auto) Eos # (Auto) Baso # (Auto) PT INR Sodium 138 Potassium 3.8 Chloride 107 Carbon Dioxide 27 Anion Gap 4.0 BUN 14 Creatinine 0.92 Est Cr Clr Drug Dosing 113.3 Est GFR ( Amer) 110.4 Est GFR (Non-Af Amer) 95.3 BUN/Creatinine Ratio 14.9 Glucose 176 H POC Glucose 206 H Lactate Calcium 8.4 L D Magnesium 2.1 Total Bilirubin 1.4 H Direct Bilirubin 0.2 AST 15 ALT 14 Alkaline Phosphatase 58 Troponin I Total Protein 6.2 L Albumin 3.4 Globulin 2.8 Albumin/Globulin Ratio 1.2 Lipase Urine Color Urine Appearance Urine pH Ur Specific [place] Urine Protein Urine Glucose (UA) Urine Ketones Urine Blood Urine Nitrite Urine Bilirubin Urine Urobilinogen Ur Leukocyte Esterase Urine WBC (Auto) Urine RBC (Auto) U Hyaline Cast (Auto) U Epithel Cells (Auto) Urine Bacteria (Auto) 07/14/19 07/14/19 07/14/19 06:00 07:58 11:58 WBC RBC Hgb Hct MCV MCH MCHC RDW Std Deviation RDW Coeff of Fabrice Plt Count MPV Immature Gran % (Auto) Neut % (Auto) Lymph % (Auto) [place] % (Auto) Eos % (Auto) Baso % (Auto) Immature Gran # (Auto) Neut # (Auto) Lymph # (Auto) [place] # (Auto) Eos # (Auto) Baso # (Auto) PT INR Sodium Potassium Chloride Carbon Dioxide Anion Gap BUN Creatinine Est Cr Clr Drug Dosing Est GFR ( Amer) Est GFR (Non-Af Amer) BUN/Creatinine Ratio Glucose POC Glucose 210 H 196 H 175 H Lactate Calcium Magnesium Total Bilirubin Direct Bilirubin AST ALT Alkaline Phosphatase Troponin I Total Protein Albumin Globulin Albumin/Globulin Ratio Lipase Urine Color Urine Appearance Urine pH Ur Specific [place] Urine Protein Urine Glucose (UA) Urine Ketones Urine Blood Urine Nitrite Urine Bilirubin Urine Urobilinogen Ur Leukocyte Esterase Urine WBC (Auto) Urine RBC (Auto) U Hyaline Cast (Auto) U Epithel Cells (Auto) Urine Bacteria (Auto) 07/14/19 16:45 WBC RBC Hgb Hct MCV MCH MCHC RDW Std Deviation RDW Coeff of Fabrice Plt Count MPV Immature Gran % (Auto) Neut % (Auto) Lymph % (Auto) [place] % (Auto) Eos % (Auto) Baso % (Auto) Immature Gran # (Auto) Neut # (Auto) Lymph # (Auto) [place] # (Auto) Eos # (Auto) Baso # (Auto) PT INR Sodium Potassium Chloride Carbon Dioxide Anion Gap BUN Creatinine Est Cr Clr Drug Dosing Est GFR ( Amer) Est GFR (Non-Af Amer) BUN/Creatinine Ratio Glucose POC Glucose 158 H Lactate Calcium Magnesium Total Bilirubin Direct Bilirubin AST ALT Alkaline Phosphatase Troponin I Total Protein Albumin Globulin Albumin/Globulin Ratio Lipase Urine Color Urine Appearance Urine pH Ur Specific [place] Urine Protein Urine Glucose (UA) Urine Ketones Urine Blood Urine Nitrite Urine Bilirubin Urine Urobilinogen Ur Leukocyte Esterase Urine WBC (Auto) Urine RBC (Auto) U Hyaline Cast (Auto) U Epithel Cells (Auto) Urine Bacteria (Auto) PG Care Time/CCT Total # of Minutes Spent Total Time Spent with Patient: Total time spent is greater than 50% in coordination of care (as documented) at patient's floor/unit and/or counseling patient: Coding Level of Care Code 23716 Subseq Hosp Care Lvl 2 Diagnoses Epigastric abdominal pain R10.13 Intractable nausea and vomiting R11.2 Gastroparesis K31.84 Type 2 diabetes mellitus E11.69; Z79.4 Diabetes mellitus ad terminal makeup operator insulin use: with intermediate use Diabetes mellitus complication status: with other specified complication Hypomagnesemia E83.42 DVT prophylaxis Z29.9 (1) Type 2 diabetes mellitus Diabetes mellitus intermediate insulin use: with ad terminal makeup operator use Diabetes mellitus complication status: with other specified complication Qualified Code(s): E11.69 - Type 2 diabetes mellitus with other specified complication; Z79.4 - intermediate designer (current) use of insulin
--- NOTE | 2019-07-14 19:38 | Electrocardiogram Report ---
Test Reason : Blood Pressure : / mmHG Vent. Rate : 073 BPM Atrial Rate : 073 BPM P-R Int : 144 ms QRS Dur : 082 ms QT Int : 392 ms P-R-T Axes : 038 019 -08 degrees QTc Int : 431 ms Normal sinus rhythm Normal ECG No previous ECGs available Confirmed by Ramon Ruiz ([id number]) on 07/14/2019 7:38:02 PM Referred By: REFERRED SELF Confirmed By:Ramon Ruiz
[2019-07-14] MEDS: DICYCLOMINE HCL 10 MG CAP PO PRN (20:24)
[2019-07-15] MEDS: LACTATED RINGER'S 1,000 ML IV SCH ×3 (01:22→18:38)
[2019-07-15] MEDS: ONDANSETRON INJ 2 MG/ML 2 ML VIAL IV PRN ×2 (02:23→08:16)
[2019-07-15] MEDS: MoRPHine SULFATE 2 MG/ML CARP IV PRN ×2 (02:23→08:16)
[2019-07-15] MEDS: ACETAMINOPHEN 325 MG TAB PO PRN ×3 (06:52→20:59)
[2019-07-15 07:21] LABS: Basophils # (auto) 0.01 K/uL (0-0.2); Basophils % (auto) 0.1 %; Hematocrit (blood only) 37.1 % (42-52); Hemoglobin 12.8 g/dL (14.0-18.0); Immature Granulocytes # (auto) 0.02 K/uL (0.00-0.02); Immature Granulocytes % (auto) 0.2 %; Lymphocytes # (auto) 1.87 K/uL (1.2-3.4); Lymphocytes % (auto) 21.3 %; Mean Corpuscular Hemoglobin 29.2 pg (25-34); Mean Corpuscular Hgb Conc 34.5 g/dL (32-36); Mean Corpuscular Volume 84.5 fL (80-100); Mean Platelet Volume 9.9 fL (7.4-10.4); Monocytes # (auto) 0.79 K/uL (0.11-0.59); Neutrophils # (auto) 6.08 K/uL (1.4-6.5); Neutrophils % (auto) 69.4 %; Platelet Count 247 K/uL (130-400); RDW Coefficient of Variation 12.9 % (11.5-14.5); RDW Standard Deviation 39.4 fL (36.4-46.3); Red Blood Count 4.39 M/uL (4.7-6.1); White Blood Count 8.77 K/uL (4.8-10.8)
[2019-07-15 07:58] LABS: Albumin Level 3.4 gm/dl (3.4-5.0); BUN Creatinine Ratio 13.7 (10-20); Calcium 8.2 mg/dl (8.5-10.1); Creatinine Clr Calc Pharmacy 127.1 ml/min; Est GFR (African American) 117.8; Est GFR (Non-African American) 101.7; Potassium 3.7 mmol/L (3.5-5.1)
[2019-07-15 07:59] LABS: Albumin Globulin Ratio 1.1 (0.9-2); Bilirubin,Total 1.2 mg/dl (0.2-1); Total Protein 6.4 gm/dl (6.4-8.2)
[2019-07-15] MEDS: ENOXAPARIN INJ 40 MG/0.4 ML SYR SQ SCH (08:22)
[2019-07-15] MEDS: INSULIN GLARGINE SOLOSTAR 100 UNITS/ML 3 ML PEN SC SCH ×2 (08:23→21:00)
[2019-07-15] MEDS: INSULIN ASPART 100 UNITS/ML 3 ML PEN SC SCH ×4 (08:24→21:00)
[2019-07-15] MEDS: FAMOTIDINE 20 MG in SYRINGE 3 ML IV SCH ×2 (09:26→21:01)
--- NOTE | 2019-07-15 16:16 | Ultrasound Report ---
ULTRASOUND RIGHT UPPER QUADRANT ABDOMEN CLINICAL HISTORY: Right upper quadrant abdominal pain. Abnormal liver function studies. COMPARISON STUDY: Abdominal CT dated 07/13/2019. TECHNIQUE: Real-time, grayscale, and color flow sonography of the right upper quadrant of the abdomen was performed. Images are reviewed in the transverse and longitudinal planes. FINDINGS: Liver: The liver is normal in size and echotexture. There is no intrahepatic biliary ductal dilatatio n. The main portal vein is patent. Gallbladder: No shadowing gallstones are identified. The gallbladder wall is thickened measuring up t o 5 mm. No pericholecystic fluid is seen. A sonographic Thorpe's sign is reportedly absent. The commo n bile duct measures up to 0.4 cm in diameter. Pancreas: Visualized portions of the pancreatic head and body are normal in appearance. The splenic v ein is patent. Right kidney: Survey images of the right kidney demonstrate normal size and echotexture. There is no hydronephrosis. Ascites: None. IMPRESSION: 1. No shadowing gallstones are identified and there is no convincing sonographic evidence of acute ch olecystitis. 2. Gallbladder wall thickening is nonspecific and may be related to adjacent hepatic inflammation. Cl inical correlation will be essential. If there is strong clinical concern for acute cholecystitis a n uclear hepatobiliary scan should be considered to assess for cystic duct obstruction. ACT 112: Negative or not required by law. Electronically signed by: Hao Zacarias M.D. 07/15/2019 4:14 PM
[2019-07-15] MEDS: DICYCLOMINE HCL 10 MG CAP PO PRN (17:52)
--- NOTE | 2019-07-15 20:21 | Hospitalist Progress Note ---
Date of Service July 15, 2019 Assessment & Plan (1) Abnormal findings on imaging of biliary tract: pt's abd discomfort shifted from RLQ to higher up in abdomen overnight. his AST and t bili are scantly elevated. CT abd/pelvis without biliary tract abnormalities. however RUQ u/s shows gall bladder wall thickening in absence of any sludge or stones. I do think it is prudent to r/o acalculous cholecystitis. Thus, will obtain HIDA in am. NPO after MN for such. If HIDA is negative then LFTs may be reactive and overall clinical picture is most c/w that of gastroenteritis. (2) Epigastric abdominal pain: overall improved - no nausea/emesis/diarrhea. however, still having pain RUQ/epigastrum. see above in "abnormal findings on..." cont IV H2 marcos. cont bentyl prn. clear liquids until MN, then NPO for HIDA in am. (3) Intractable nausea and vomiting: resolved see discussion above in "abd pain" (4) Gastroparesis: Although he has a dx of this I do not believe his current symptoms are from such. Gastroparesis would not typically cause the amount of abd pain he has had, a lactic acidosis at ER presentation, etc. Although it could contribute to his nausea I believe another entity (gastroenteritis, biliary tract disease, etc) are contributing to symptoms. (5) Type 2 diabetes mellitus: Continue Xultophy 30 U BID. Novolog for carb coverage and correction. Thus far glycemic control is adequate. (6) Hypomagnesemia: Replaced and now resolved (7) DVT prophylaxis: lovenox daily extensively updated by phone 07/14/19 patient is hydrated at this time clinically/lab-armendariz -- reduce fluid rate to 75cc/hr Admission and Anticipated Discharge Date Admission Date: July 14, 2019 Subjective patient states he overall feels better. abdominal discomforts are improved. tolerating clears but appetite is poor. no fevers, chills or diarrhea. nausea/emesis resolved. his abd pain was RLQ yesterday -- now it is upper abdomen (RUQ/epigastric region). Review of Systems Constitutional: no fever and no chills Respiratory: no cough, no dyspnea and no dyspnea on exertion Cardiovascular: no chest pain Gastrointestinal: as per Subjective / HPI, + abdominal pain, + belching and + bloating; no heartburn, no nausea, no vomiting, no coffee ground emesis, no diarrhea/loose stools and no blood in stools Physical Exam Constitutional: well developed, well nourished, + well hydrated and average body habitus; no acute distress ENMT: external ear and nose normal, oropharynx normal Respiratory: normal respiratory effort, lungs clear to auscultation Cardiovascular: Rate/Rhythm: regular rate and regular rhythm Heart Sounds: normal S1 and normal S2; no murmur Vessels: posterior tibial pulses present and dorsalis pedis pulses present; no JVD Extremities: no edema Gastrointestinal (Abdomen): Inspection/Auscultation: abdomen normal to inspection and normal bowel sounds; abdomen not distended Percussion/Palpation: + abdomen tender (RUQ w/ very deep palpation; mild pain in the epigastrum as well) and abdomen soft; no guarding, abdomen not rigid and no hepatosplenomegaly Skin: no rashes, warm and dry Psychiatric: A+Ox3, euthymic affect Results & Data ([facility]) Vital Signs (Past 12 Hours) Vital Signs Temp Pulse Resp BP Pulse Ox 07/15/19 14:42 36.8 C 64 18 169/91 H 95 Laboratory Results Laboratory Results - last 24 hr 07/15/19 07/15/19 07/15/19 06:58 06:58 08:00 WBC 8.77 RBC 4.39 L Hgb 12.8 L Hct 37.1 L MCV 84.5 MCH 29.2 MCHC 34.5 RDW Std Deviation 39.4 RDW Coeff of Fabrice 12.9 Plt Count 247 MPV 9.9 Immature Gran % (Auto) 0.2 Neut % (Auto) 69.4 Lymph % (Auto) 21.3 [place] % (Auto) 9.0 Eos % (Auto) 0.0 Baso % (Auto) 0.1 Immature Gran # (Auto) 0.02 Neut # (Auto) 6.08 Lymph # (Auto) 1.87 [place] # (Auto) 0.79 H Eos # (Auto) 0.00 Baso # (Auto) 0.01 Sodium 137 Potassium 3.7 Chloride 106 Carbon Dioxide 26 Anion Gap 5.0 BUN 11 Creatinine 0.82 Est Cr Clr Drug Dosing 127.1 Est GFR ( Amer) 117.8 Est GFR (Non-Af Amer) 101.7 BUN/Creatinine Ratio 13.7 Glucose 110 H POC Glucose 114 H Calcium 8.2 L Total Bilirubin 1.2 H AST 41 H ALT 20 Alkaline Phosphatase 57 Total Protein 6.4 Albumin 3.4 Globulin 3.0 Albumin/Globulin Ratio 1.1 Specimen Hemolysis 07/15/19 07/15/19 07/15/19 11:51 16:50 20:02 WBC RBC Hgb Hct MCV MCH MCHC RDW Std Deviation RDW Coeff of Fabrice Plt Count MPV Immature Gran % (Auto) Neut % (Auto) Lymph % (Auto) [place] % (Auto) Eos % (Auto) Baso % (Auto) Immature Gran # (Auto) Neut # (Auto) Lymph # (Auto) [place] # (Auto) Eos # (Auto) Baso # (Auto) Sodium Potassium Chloride Carbon Dioxide Anion Gap BUN Creatinine Est Cr Clr Drug Dosing Est GFR ( Amer) Est GFR (Non-Af Amer) BUN/Creatinine Ratio Glucose POC Glucose 98 80 88 Calcium Total Bilirubin AST ALT Alkaline Phosphatase Total Protein Albumin Globulin Albumin/Globulin Ratio Specimen Hemolysis PG Care Time/CCT Total # of Minutes Spent Total Time Spent with Patient: Total time spent is greater than 50% in coordination of care (as documented) at patient's floor/unit and/or counseling patient: Coding Level of Care Code 52195 Subseq Hosp Care Lvl 2 Diagnoses Abnormal findings on imaging of biliary tract R93.2 Epigastric abdominal pain R10.13 Intractable nausea and vomiting R11.2 Gastroparesis K31.84 Type 2 diabetes mellitus E11.69; Z79.4 Diabetes mellitus complication status: with other specified complication Diabetes mellitus halfway insulin use: with ad terminal makeup operator use Hypomagnesemia E83.42 DVT prophylaxis Z29.9 (1) Type 2 diabetes mellitus Diabetes mellitus complication status: with other specified complication Diabetes mellitus halfway insulin use: with ad terminal makeup operator use Qualified Code(s): E11.69 - Type 2 diabetes mellitus with other specified complication; Z79.4 - skilled nursing (current) use of insulin
[2019-07-16] MEDS: LACTATED RINGER'S 1,000 ML IV SCH (07:53)
[2019-07-16] MEDS: FAMOTIDINE 20 MG in SYRINGE 3 ML IV SCH ×2 (08:51→21:01)
[2019-07-16] MEDS: ENOXAPARIN INJ 40 MG/0.4 ML SYR SQ SCH (08:51)
[2019-07-16 08:52] LABS: Basophils # (auto) 0.02 K/uL (0-0.2); Basophils % (auto) 0.3 %; Hematocrit (blood only) 37.6 % (42-52); Hemoglobin 13.5 g/dL (14.0-18.0); Immature Granulocytes # (auto) 0.03 K/uL (0.00-0.02); Immature Granulocytes % (auto) 0.4 %; Lymphocytes # (auto) 1.69 K/uL (1.2-3.4); Lymphocytes % (auto) 21.5 %; Mean Corpuscular Hemoglobin 29.6 pg (25-34); Mean Corpuscular Hgb Conc 35.9 g/dL (32-36); Mean Corpuscular Volume 82.5 fL (80-100); Mean Platelet Volume 9.4 fL (7.4-10.4); Monocytes # (auto) 0.95 K/uL (0.11-0.59); Monocytes % (auto) 12.1 %; Neutrophils # (auto) 5.17 K/uL (1.4-6.5); Neutrophils % (auto) 65.7 %; Platelet Count 217 K/uL (130-400); RDW Coefficient of Variation 12.6 % (11.5-14.5); Red Blood Count 4.56 M/uL (4.7-6.1); White Blood Count 7.86 K/uL (4.8-10.8)
[2019-07-16 09:20] LABS: Albumin Level 3.5 gm/dl (3.4-5.0); BUN Creatinine Ratio 13.7 (10-20); Calcium 8.8 mg/dl (8.5-10.1); Creatinine Clr Calc Pharmacy 142.8 ml/min; Est GFR (African American) 123.6; Est GFR (Non-African American) 106.6; Potassium 3.2 mmol/L (3.5-5.1)
[2019-07-16 09:24] LABS: Albumin Globulin Ratio 1.1 (0.9-2); Globulin 3.2 gm/dl (2.5-4.0); Total Protein 6.7 gm/dl (6.4-8.2)
[2019-07-16] MEDS ORDERED: POTASSIUM CHLORIDE 40 MEQ in SODIUM CHLORIDE 0.9% 1000ML 1,000 ML IV SCH (09:45)
[2019-07-16] MEDS: INSULIN ASPART 100 UNITS/ML 3 ML PEN SC SCH ×4 (09:59→21:02)
[2019-07-16] MEDS: INSULIN GLARGINE SOLOSTAR 100 UNITS/ML 3 ML PEN SC SCH (10:01)
[2019-07-16] MEDS ORDERED: INSULIN GLARGINE SOLOSTAR 100 UNITS/ML 3 ML PEN SC STA (10:10)
[2019-07-16] MEDS ORDERED: SINCALIDE 2 MCG in 0.9 % SODIUM CHLORIDE 100 ML IV SCH (11:15)
--- NOTE | 2019-07-16 13:00 | Nuclear Medicine Report ---
NM hepatobiliary EF CLINICAL HISTORY: abnormal gall bladder US; abnormal LFTs; RUQ pain COMPARISON STUDY: Biliary ultrasound dated 07/15/2019 FINDINGS: The patient was injected with 5.1 mCi of technetium 99 M Choletec. Sequential anterior imag ing was performed. There is normal hepatic excretion. There is normal passage of activity into small bowel. The gallbladder was first visualized at 15 minute image. At 1 hour the patient was administere d 2 mcg of sincalide utilizing a 30 minute intravenous infusion. The gallbladder ejection fraction wa s normal measuring 68%. IMPRESSION: Normal study. No evidence of cystic duct obstruction. Normal gallbladder ejection fracti on of 68% ACT 112: Negative or not required by law. Electronically signed by: Magdiel Forte M.D. 07/16/2019 12:59 PM
[2019-07-16] MEDS: CARBOHYDRATES FOR HYPOGLYCEMIA PO PRN ×2 (13:07→20:28)
--- NOTE | 2019-07-16 16:11 | Hospitalist Progress Note ---
Date of Service July 16, 2019 Assessment & Plan (1) Abnormal findings on imaging of biliary tract: his AST and t bili are scantly elevated. CT abd/pelvis without biliary tract abnormalities. however RUQ u/s shows gall bladder wall thickening in absence of any sludge or stones. Hida was normal - LFTs may be reactive and overall clinical picture is most c/w that of gastroenteritis. (2) Epigastric abdominal pain: overall improved - no nausea/emesis/diarrhea. however, mild llq tenderness to palpation - was previously more epigastric pain cont IV H2 marcos. cont bentyl prn. Advance diet (3) Intractable nausea and vomiting: resolved see discussion above in "abd pain" (4) Gastroparesis: unlikely that this is contributing. (5) Type 2 diabetes mellitus: Continue Xultophy 30 U BID. Novolog for carb coverage and correction. Has had a couple of hypoglycemic episodes, likely due to poor po intake - hopefully will resolve now that symptoms are improving (6) Hypomagnesemia: Replaced and now resolved (7) DVT prophylaxis: lovenox daily Will likely be able to dc tomorrow if tolerating po intake (8) Hypokalemia: 3.2 today - replaced Admission and Anticipated Discharge Date Admission Date: July 14, 201907/16 Subjective Mr. Atkinson is feeling better than at admission. He has not vomited since admission. No BM since before admission. No pain. He feels aches and chills at times ROS Constitutional: see HPI Respiratory: no sob,cough, sputum, or wheezing Cardiac: no chest pain, palpitations, edema, orthopnea or lightheadedness GI: see HPI : no dysuria or hesitancy Extremities: no joint pain or weakness Skin: no rash All other systems reviewed and negative Physical Exam Constitutional: WD/WN, vitals as above Respiratory: normal respiratory effort, lungs clear to auscultation Cardiovascular: RRR, no murmur, no edema Gastrointestinal (Abdomen): Inspection/Auscultation: abdomen normal to inspection and normal bowel sounds; abdomen not distended Percussion/Palpation: abdomen soft; abdomen nontender Musculoskeletal: no cyanosis or clubbing, extremities motor strength 5/5 Skin: no rashes, warm and dry Neurologic: moves all extremities and awake Psychiatric: A+Ox3, euthymic affect Results & Data ([facility]) Vital Signs (Past 12 Hours) Vital Signs Temp Pulse Resp BP Pulse Ox 07/16/19 15:24 36.7 C 64 18 162/94 H 95 07/16/19 07:12 37.3 C 64 18 188/90 H 97 PG Care Time/CCT Total # of Minutes Spent Total Time Spent with Patient: Total time spent is greater than 50% in coordination of care (as documented) at patient's floor/unit and/or counseling patient: Coding Level of Care Code 87374 Subseq Hosp Care Lvl 2 Diagnoses Abnormal findings on imaging of biliary tract R93.2 Epigastric abdominal pain R10.13 Intractable nausea and vomiting R11.2 Gastroparesis K31.84 Type 2 diabetes mellitus E11.69; Z79.4 Diabetes mellitus superintendent marine oil terminal insulin use: with senior living use Diabetes mellitus complication status: with other specified complication Hypomagnesemia E83.42 DVT prophylaxis Z29.9 Hypokalemia E87.6 (1) Type 2 diabetes mellitus Diabetes mellitus senior living insulin use: with senior living use Diabetes mellitus complication status: with other specified complication Qualified Code(s): E11.69 - Type 2 diabetes mellitus with other specified complication; Z79.4 - FDC (current) use of insulin
[2019-07-16] MEDS: ONDANSETRON INJ 2 MG/ML 2 ML VIAL IV PRN (17:32)
[2019-07-16] MEDS ORDERED: INSULIN GLARGINE SOLOSTAR 100 UNITS/ML 3 ML PEN SC SCH (21:00)
[2019-07-16] MEDS: ACETAMINOPHEN 325 MG TAB PO PRN (21:09)
[2019-07-17 06:35] LABS: Hematocrit (blood only) 39.5 % (42-52); Hemoglobin 14.3 g/dL (14.0-18.0); Mean Corpuscular Hemoglobin 29.5 pg (25-34); Mean Corpuscular Hgb Conc 36.2 g/dL (32-36); Mean Corpuscular Volume 81.4 fL (80-100); Mean Platelet Volume 9.7 fL (7.4-10.4); Platelet Count 247 K/uL (130-400); RDW Coefficient of Variation 12.6 % (11.5-14.5); RDW Standard Deviation 37.2 fL (36.4-46.3); Red Blood Count 4.85 M/uL (4.7-6.1)
[2019-07-17 07:14] LABS: Albumin Globulin Ratio 1.1 (0.9-2); Albumin Level 3.5 gm/dl (3.4-5.0); BUN Creatinine Ratio 15.8 (10-20); Bilirubin Direct 0.3 mg/dl (0-0.2); Bilirubin,Total 2.3 mg/dl (0.2-1); Calcium 8.4 mg/dl (8.5-10.1); Creatinine Clr Calc Pharmacy 140.9 ml/min; Est GFR (African American) 122.9; Est GFR (Non-African American) 106.1; Globulin 3.3 gm/dl (2.5-4.0); Potassium 3.2 mmol/L (3.5-5.1); Total Protein 6.8 gm/dl (6.4-8.2)
[2019-07-17] MEDS: CARBOHYDRATES FOR HYPOGLYCEMIA PO PRN (07:23)
[2019-07-17] MEDS: ENOXAPARIN INJ 40 MG/0.4 ML SYR SQ SCH (07:26)
[2019-07-17 08:41] LABS: Estimated Average Glucose 151 mg/dl; Hemoglobin A1C 6.9 % (4.5-5.6)
[2019-07-17] MEDS ORDERED: POTASSIUM CHLORIDE 20 MEQ TABCR PO STA ×2 (08:49→09:38)
[2019-07-17] MEDS ORDERED: INSULIN GLARGINE SOLOSTAR 100 UNITS/ML 3 ML PEN SC SCH ×2 (09:00)
[2019-07-17] MEDS: INSULIN ASPART 100 UNITS/ML 3 ML PEN SC SCH (09:27)
[2019-07-17] MEDS: FAMOTIDINE 20 MG in SYRINGE 3 ML IV SCH (09:29)
--- NOTE | 2019-07-17 11:11 | Discharge Summary ---
Date of Service July 17, 2019 Admission HPI Per Admitting Provider 53 y/o male presented to the ED with a progressive diffuse abdominal pain that began 2 days prior following evening meal. He has had associated nausea, vomiting and diarrhea. Pain radiates through to his low back. No F/C, cough, SOB, chest pain, dysuria, hematuria, or headache. The patient has not vomited since being in the ED. Primary Care Provider: Gray Wisdom, III, BORDEREAU CLERK Principal Diagnosis Gastroenteritis Discharge Exam Constitutional WD/WN, vitals as above Respiratory normal respiratory effort, lungs clear to auscultation Cardiovascular RRR, no murmur, no edema Gastrointestinal (Abdomen) Inspection/Auscultation: abdomen normal to inspection and normal bowel sounds; abdomen not distended Percussion/Palpation: abdomen soft; abdomen nontender Musculoskeletal no cyanosis or clubbing, extremities motor strength 5/5 Skin no rashes, warm and dry Neurologic moves all extremities and awake Psychiatric A+Ox3, euthymic affect Discharge Data Allergies Allergy/AdvReac Type Severity Reaction Status Date / Time Penicillins Allergy Severe N/V Verified 07/13/19 20:44 aspirin Allergy Intermediate HIVES AND Verified 07/13/19 20:44 SWELLING OF THE FACE ibuprofen Allergy Intermediate HIVES AND Verified 07/13/19 20:44 SWELLING OF THE FACE Ordered Studies 07/13/19 20:18 CT abd pelvis IV con only Stat 07/15/19 15:11 US gallbladder Urgent Hospital Course (1) Abnormal findings on imaging of biliary tract: AST/ALT has resolved, bili is 2.3 but direct bili is only 0.3 - likely reactive due to illness . CT abd/pelvis without biliary tract abnormalities. Did show evidence of chronic inflammation - recommended patient make the appointment for the colonoscopy referral given by his pcp in January RUQ u/s shows gall bladder wall thickening in absence of any sludge or stones - HIDA was normal Overall clinical picture is most c/w that of gastroenteritis. (2) Epigastric abdominal pain: overall improved - no nausea/emesis/diarrhea. given H2 blockers IV while inpatient and bentyl prn. Tolerating advanced diet (3) Intractable nausea and vomiting: resolved (4) Gastroparesis: Patient reports he has not been checking his blood sugars frequently at home. Gastroparesis symptoms may have worsened and contributed (5) Type 2 diabetes mellitus: Patient having some hypoglycemic episodes - discussed his home regimen and it is much less than we had recorded. He is only taking 30 units daily of the glargine and will take 30 units Humalog when he eats which is usually only once per day equalling about 60 units of insulin per day. He also says that he does not take the full 30 units if he is not eating a full meal. I recommended he take his blood sugar before meals and before bed and monitor closely. Discussed with glycemic pharmacist for home dosing - will decrease to 30 units per day total insulin with 15 units of insulin lispro with his daily meal and 15 units of insulin glargine daily. - Patient does report not checking blood sugars frequently lately. He recently had both his daughter and his good friend and there is an element of lack of self care here. Counseling was recommended to him by Dr. Sood. (6) Hypomagnesemia: Replaced and now resolved (7) DVT prophylaxis: lovenox daily while inpatient (8) Hypokalemia: 3.2 today - replaced Total Time Total Time Spent Total Time Spent (In Minutes): greater than 30 minutes Discharge Plan Discharge Items Patient Disposition: Home - Self-Care Reason For Visit: INTRACTABLE VOMITING Discharge Diagnosis: Gastroenteritis Activity: Resume your previous activity Non-emergency contact: Primary Care Provider Call non-emergency contact if: you have any medication questions Follow-up/Referrals: Gray Wisdom III, CRNP [Primary Care Provider] - 07/24/19 9:20 am (If you need to reschedule this appointment, please call [phone] or [phone]) Diet: Carb Consistent or DM2 Addtl Attending Provider Instructions: (1) Abdominal pain Likely due to gastroenteritis from which you are now much improved CT abd/pelvis did not show any acute changes nor did the gallbladder ultrasound but suggested clarification with the HIDA scan (to evaluate the gallbladder) which was normal. Your abnormal liver function studies may be reactive to the stress of the gastroenteritis. Please see your provider within a week to follow up. He may want to follow up with lab work to ensure resolution. (2) Type 2 diabetes mellitus: Your blood sugars were frequently low while you were here likely due to too much basal insulin being given and not enough oral intake. Please return to your home dosing and check your blood sugars before meals and before bed to ensure that you are not experiencing hypoglycemia at home and that your blood sugars are remaining under control Your A1c was 6.9 which indicates good glycemic control. However, if your blood sugars are spanning a wide range by dropping very low and going up very high it will average out to normal which is another reason it is important that you check your sugars 4 times per day until you follow up with your provider to get a better idea of the range of your blood sugars in a day. Please decrease your insulin until you follow up with your primary care provider - Reduce your insulin lispro (Humalog) dosing to 15 units - as we discussed earlier since you generally eat one big meal a day with which you will take 15 units of Humalog with it. - Reduce your insulin glargine (Tresiba) dosing to 15 units once per day - Your blood sugar was hypoglycemic with 46 units of insulin yesterday so you should not exceed 30 units per day total without talking to your primary care provider first. If your blood sugars are running over 300 please call your primary care provider (3) Hypokalemia: Your potassium was running a little low while you were here, likely due to poor oral intake and will improve as you return to a normal diet. Pending Studies at Discharge: No Stand-Alone Forms: My [facility] Mr. Youth, Smoking Cessation Medications and DC Order Prescriptions: Continued (DME) pen needle, diabetic [BD Ultra-Fine Mini Pen Needle] 31 gauge x 3/16" needle See Dose Instructions .ROUTE .MEDSUPPLY Qty: 30 RF: 0 (DME) OneTouch Ultra Blue Test Strip strip See Dose Instructions .ROUTE .MEDSUPPLY Qty: 10 RF: 0 acetaminophen [Tylenol Extra Strength] 500 mg Tablet 100 mg PO Q6H PRN (Reason: Pain) RF: 0 fluocinonide 0.05 % cream 1 appln TOP BID PRN (Reason: FLARE UPS) RF: 0 Changed Tresiba FlexTouch U-100 100 unit/mL (3 mL) insulin pen 15 units SQ DAILY Qty: 30 RF: 5 insulin lispro [Humalog KwikPen Insulin] 100 unit/mL insulin pen 15 units SQ DAILY Qty: 30 RF: 3 Discharge Orders: Discharge Order (Routine); Ordered 07/17/19 Ordered By: Kathe Alvarado/Other Patient Handouts: Hypoglycemia, Hypokalemia Dc Admission Data Admit Date/Time: 07/14/19 17:44 Attending Provider: Toño Sood Admit Provider: Naveen Escudero Primary Care Provider: Gray Wisdom III Other Providers: [facility],Home Healthcare Other Interventions: Discharge Summary Assessment (RN) Last Done: 07/17/19 11:45 DC Date/Time DO NOT enter until pt leaves facility: 07/17/19 12:34 Supervising Physician Co-Signing Physician Notes I supervised Kathe Wong NP on this patient's care. I examined the patient today independently of her. I discussed the plan of care with her with the plan being as written in her note except for any following changes/exceptions: None. He is doing well today. He is eating well without any issues. He associates his nausea and vomiting with high blood sugars and has been having higher blood sugars recently due to grief from losing his daughter and a good friend in the last few months. I did recommend he see a therapist or talk with his PCP as he feels he cannot speak with his about these issues as she is also undergoing grief. Coding Level of Care Code D/C Day Management >30 mins Diagnoses Abnormal findings on imaging of biliary tract R93.2 Epigastric abdominal pain R10.13 Intractable nausea and vomiting R11.2 Gastroparesis K31.84 Type 2 diabetes mellitus E11.69; Z79.4 Diabetes mellitus complication status: with other specified complication Diabetes mellitus manager long term care insulin use: with intermediate use Hypomagnesemia E83.42 DVT prophylaxis Z29.9 Hypokalemia E87.6
== END 2019-07-17 12:34 | disposition home health service (06) | DRG 392 ==
LOC: ED 19:50 → 4W 19:50 → SUATTDRO 23:04 → 4W 23:55 → SUATTDRO 07-14 17:44